=== PATIENT | female | born 1995 | race American Indian/Alaskan Native ===

== ENCOUNTER 2023-03-14 15:38 | Outpatient (CLI) | payer OTHER, SELFPAY | END 2023-03-14 15:39 | disposition home or self-care (01) | LOC: NFLDREF 03-15 08:58 | PROVIDERS: Visit Provider Nurse Practitioner Family | DX: Z76.0 Encounter for issue of repeat prescription (principal); Z79.899 Other long term (current) drug therapy; F31.9 Bipolar disorder, unspecified; G47.00 Insomnia, unspecified; F41.9 Anxiety disorder, unspecified; F10.91 Alcohol use, unspecified, in remission; Z13.21 Encounter for screening for nutritional disorder; E55.9 Vitamin D deficiency, unspecified | CPT/HCPCS: 80053; 82306; 84443 ==

== ENCOUNTER 2023-09-12 16:39 | Outpatient (CLI) | payer OTHER, SELFPAY | END 2023-09-12 16:40 | disposition home or self-care (01) | LOC: NFLDREF 09-17 22:59 | PROVIDERS: Visit Provider Nurse Practitioner Family | DX: Z79.899 Other long term (current) drug therapy (principal); R79.89 Other specified abnormal findings of blood chemistry; F41.0 Panic disorder [episodic paroxysmal anxiety]; F31.9 Bipolar disorder, unspecified; F10.91 Alcohol use, unspecified, in remission; F41.9 Anxiety disorder, unspecified; G47.00 Insomnia, unspecified; F12.90 Cannabis use, unspecified, uncomplicated | CPT/HCPCS: 82306 ==

== ENCOUNTER 2023-12-06 15:59 | Outpatient (CLI) | payer OTHER, SELFPAY | END 2023-12-06 16:00 | disposition home or self-care (01) | LOC: FRMREF 15:59 | PROVIDERS: PCP Family Medicine; Visit Provider Family Medicine | DX: Z79.899 Other long term (current) drug therapy (principal) | CPT/HCPCS: 80053 ==

== ENCOUNTER 2024-12-17 13:40 | Outpatient (CLI) | payer OTHER, SELFPAY ==
[2024-12-19 09:52] LABS: HPV Source Endocervical; HPV, High Risk by TMA Detected
[2024-12-19 16:53] LABS: HPV Genotype 16 by TMA Not Detected; HPV Genotype 18/45 by TMA Not Detected; HPVG Source Endocervical
[2024-12-29 14:19] LABS: Pap Test Reviewed by Path Done
== END 2024-12-17 13:41 | disposition home or self-care (01) ==
PROVIDERS: PCP Family Medicine; Visit Provider Family Medicine
DX: Z12.4 Encounter for screening for malignant neoplasm of cervix (principal); Z11.3 Encounter for screening for infections with a predominantly sexual mode of transmission
CPT/HCPCS: 87624; 87625; 88141; 88142

== ENCOUNTER 2024-12-29 13:16 | Outpatient (CLI) | payer OTHER, SELFPAY | END 2024-12-29 13:17 | disposition home or self-care (01) | LOC: US 13:18 | PROVIDERS: PCP Family Medicine; Visit Provider Obstetrics & Gynecology | DX: T83.32XA Displacement of intrauterine contraceptive device, initial encounter (principal); Z30.9 Encounter for contraceptive management, unspecified | CPT/HCPCS: 76830; 76856 ==

== ENCOUNTER 2025-09-20 08:05 | Outpatient (CLI) | payer BC, SELFPAY | END 2025-09-20 08:06 | disposition home or self-care (01) | PROVIDERS: PCP Family Medicine; Visit Provider Family Medicine | DX: Z00.00 Encounter for general adult medical examination without abnormal findings (principal); F31.9 Bipolar disorder, unspecified; R74.01 Elevation of levels of liver transaminase levels; R79.89 Other specified abnormal findings of blood chemistry; Z11.59 Encounter for screening for other viral diseases; Z79.899 Other long term (current) drug therapy | CPT/HCPCS: 80053; 80061; 82306; 86803 ==

== ENCOUNTER 2025-10-14 13:33 | Outpatient (CLI) | payer BC, SELFPAY ==
[2025-10-21 15:33] LABS: HPV Source Cervical
[2025-10-27 19:42] LABS: Pap Test Digital Imaging Done; Pap Test Reviewed by Pathologi Done
== END 2025-10-14 13:34 | disposition home or self-care (01) ==
PROVIDERS: PCP Family Medicine; Visit Provider Obstetrics & Gynecology
DX: N87.1 Moderate cervical dysplasia (principal); Z12.4 Encounter for screening for malignant neoplasm of cervix
CPT/HCPCS: 87624; 87625; 88141; 88142; 88175